=== PATIENT | male | born 1970 | race Caucasian/White ===

== ENCOUNTER 2017-09-30 16:49 | Emergency (ER) | END 2017-09-30 20:11 | disposition home or self-care (01) ==

== ENCOUNTER 2018-11-12 13:41 | Emergency (ER) | payer BC ==
[~2018-11-12] VITALS: Wt 86.3 kg
[~2018-11-12 13:41] MED LIST: CEPH-443 PO; IBUP-1542 PO; MUPI22OI2 TOP; SULF1TAB31 PO
[2018-11-12] MEDS ORDERED: NITROGLYCERIN 2% 1 GM OINT PKT TD STA (14:49)
[2018-11-12] MEDS ORDERED: ASPIRIN 325 MG TAB PO STA (14:49)
[2018-11-12] MEDS ORDERED: NITROGLYCERIN (SL) 0.4 MG TAB SL PRN (15:00)
--- NOTE | 2018-11-12 15:10 | ERD ---
ER Documentation Chief Complaint Chief Complaint L side CP rad L scalpula since last PM; intermittent, shooting. non-reprodu HPI This is a 48-year-old male who is complaining of pain in the left chest off and on since yesterday evening. Describes the pain is a pressure sensation sometimes sharp, and radiates to the left shoulder and left scapula sometimes. He says nothing makes the pain worse or better including movement. He says it feels like he can get a good breath in also. He gets short of breath and the pain gets stronger but no diaphoresis or nausea or vomiting. He has the pain currently ROS All systems reviewed and are negative except as per history of present illness. Medications Home Meds Discontinued Scripts Sulfamethoxazole/Trimethoprim* (Bactrim Ds* Tablet) 1 Each Tablet, 1 TAB PO BID, #14 TAB Prov:ONEIDA KUMAR PA-C 05/18/18 Cephalexin* (Keflex*) 500 Mg Capsule, 500 MG PO QID for 7 Days, CAP Prov:ONEIDA KUMAR PA-C 05/18/18 Mupirocin* (Bactroban*) 2% -22 Gram Oint...g., 1 APPLIC TOP BID for 7 Days, EA Prov:ONEIDA KUMAR PA-C 05/18/18 Ibuprofen* (Motrin*) 600 Mg Tab, 600 MG PO Q6, #20 TAB Prov:BRITTANY JOHNSON MD 09/30/17 Allergies Allergies: Coded Allergies: No Known Allergy (Unverified , 11/12/18) PMhx/Soc Medical and Surgical Hx: pt denies Medical Hx, pt denies Surgical Hx Hx Alcohol Use: No Hx Substance Use: No Hx Tobacco Use: No Smoking Status: Never smoker FmHx Family History: No coronary disease Physical Exam Vitals Vital Signs Date Temp Pulse Resp B/P (MAP) Pulse Ox O2 O2 Flow FiO2 Time Delivery Rate 11/12/18 51 16 108/83 100 Room Air 17:14 (91) 11/12/18 51 20 113/83 100 Room Air 16:26 (93) 11/12/18 52 20 114/76 100 Room Air 15:34 (89) 11/12/18 62 20 120/87 99 Room Air 15:17 (98) 11/12/18 Nasal 2 14:59 Cannula 11/12/18 97.6 64 18 129/82 98 13:45 (98) Physical Exam Const: Well-developed, well-nourished Head: Atraumatic, normocephalic Eyes: Normal Conjunctiva, PERRLA, EOMI, normal sclera, no nystagmus ENT: Normal External Ears, Nose and Mouth, moist mucus membranes. Neck: Full range of motion. No meningismus, no lymphadenopathy. Resp: Clear to auscultation bilaterally, no wheezing, rhonchi, rales, non-reproducible pain to palpation Cardio: Regular rate and rhythm, no murmurs, S1 S2 present Abd: Soft, non tender x 4, non distended. Normal bowel sounds, no guarding or rebound, no pulsitile abdominal masses or bruits Skin: No petechiae or rashes, no ecchymosis , no maculopapular rash Back: No midline or flank tenderness Ext: No cyanosis, or edema, FROM x 4, normal inspection, neurovascularly intact x 4 Neur: Awake and alert, STR 5/5 x 4, sensation intact x 4, no focal findings, cerebellum intact Psych: Normal Mood and Affect Result Diagram: 11/12/18 1502 11/12/18 1502 Results 24 hrs Laboratory Tests Test 11/12/18 15:02 White Blood Count 6.6 10^3/ul Red Blood Count 4.84 10^6/ul Hemoglobin 14.1 g/dl Hematocrit 43.0 % Mean Corpuscular Volume 88.8 fl Mean Corpuscular Hemoglobin 29.1 pg Mean Corpuscular Hemoglobin Concent 32.8 g/dl Red Cell Distribution Width 12.9 % Platelet Count 273 10^3/UL Mean Platelet Volume 9.6 fl Immature Granulocytes % 0.800 % Neutrophils % 58.1 % Lymphocytes % 30.6 % Monocytes % 8.2 % Eosinophils % 1.5 % Basophils % 0.8 % Nucleated Red Blood Cells % 0.0 /100WBC Immature Granulocytes # 0.050 10^3/ul Neutrophils # 3.8 10^3/ul Lymphocytes # 2.0 10^3/ul Monocytes # 0.5 10^3/ul Eosinophils # 0.1 10^3/ul Basophils # 0.1 10^3/ul Nucleated Red Blood Cells # 0.0 10^3/ul Sodium Level 140 mmol/L Potassium Level 4.2 mmol/L Chloride Level 106 mmol/L Carbon Dioxide Level 26 mmol/L Anion Gap 8 Blood Urea Nitrogen 17 mg/dl Creatinine 0.80 mg/dl Est Glomerular Filtrat Rate mL/min > 60 mL/min Glucose Level 89 mg/dl Calcium Level 9.2 mg/dl Total Bilirubin 0.1 mg/dl Direct Bilirubin 0.00 mg/dl Indirect Bilirubin 0.1 mg/dl Aspartate Amino Transf (AST/SGOT) 26 IU/L Alanine Aminotransferase (ALT/SGPT) 29 IU/L Alkaline Phosphatase 56 IU/L Troponin I < 0.012 ng/ml B-Type Natriuretic Peptide < 11 PG/ML Total Protein 8.0 g/dl Albumin 4.5 g/dl Globulin 3.50 g/dl Albumin/Globulin Ratio 1.28 Current Medications Medications Dose Sig/Hayden Start Time Status Last (Trade) Ordered Route PRN Stop Time Admin Dose Reason Admin Aspirin 325 mg ONCE STAT 11/12/18 DC 11/12/18 (Aspirin) PO 14:49 11/12/18 15:15 14:50 1 inch ONCE STAT 11/12/18 DC Nitroglycerin TD 14:49 11/12/18 14:50 (Nitroglyceri n 2% Oint) 1 tab Q5M UP TO 3 11/12/18 11/12/18 Nitroglycerin DOSES PRN 15:00 15:15 SL .CHEST (Nitroglyceri PAIN n (Sl Tab) 0.4 Mg) Procedures/MDM EKG: Rate/Rhythm: Sinus bradycardia QRS, ST, QT: NORMAL IN, QRS, QT] Impression: Sinus bradycardia Ordering MD: SPENCER HULL DO Location: E/R Room/Bed: PROCEDURE: XR Chest. CLINICAL INDICATION: chest pain TECHNIQUE: Single frontal view of the chest was obtained COMPARISON: None FINDINGS: The heart and mediastinum are within normal limits. The lungs are clear. There is no pleural effusion or pneumothorax. RPTAT: AA IMPRESSION: No acute disease. .Jamarcus Royal MD, Date Time Electronically viewed and signed by .Jamarcus Royal MD, on 11/12/2018 15:46 .S/ CC: SPENCER HULL DO [phone] Patient is not going to be admitted. He wants to leave AGAINST MEDICAL ADVICE. Had extensive discussion with him at bedside about the need to stay to get a cardiac workup when he runs the risk of having a cardiac arrest or if he leaves. This was explained to him with a Iranian design engineer marine equipment at the bedside. The patient says he understands this risk and still wants to go home. He says he will see his primary care physician tomorrow. I went over the risks several times and told him that he will be admitted for observation stay and that he can get his cardiac workup done quickly in the hospital to ensure that of his safety. Patient says he understands this but feels better and wants to go home anyway. I will provide him with nitroglycerin sublingual and told him to please reconsider and return Departure Diagnosis: Primary Impression: Chest pain Chest pain type: unspecified Qualified Codes: R07.9 - Chest pain, unspecified Condition: Fair SPENCER HULL DO Nov 12, 2018 15:10
[2018-11-12 17:14] VITALS: BP 108/83; PULSE 51; RESP 16
[2018-11-12] MEDS ORDERED: NITR0.4T39 SL (18:09)
== END 2018-11-12 18:36 | disposition left against medical advice (07) ==
LOC: E/R 13:41
DX: R07.9 Chest pain, unspecified (principal)
CPT/HCPCS: 36415; 71045; 80053; 83880; 84484; 85025; 93005; Z7502; Z7610